=== PATIENT | male | born 1990 | race American Indian/Alaskan Native ===

== ENCOUNTER 2021-03-28 21:29 | Emergency (ER) | payer SELFPAY ==
[2021-03-28 22:06] VITALS: BP 126/54
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
[2021-03-29] MEDS ORDERED: ACETAMINOPHEN 500 MG TAB PO ONE (04:46)
--- NOTE | 2021-03-29 10:28 | Electrocardiograph Report ---
[facility] Test Date: 2021-03-28 Test Time: 22:13:38 Pat Name: DEANN PERDUE Department: Room: Gender: M Packager Machine: MIRELLA : 1990 Requested By: GAL MCGILL Order Number: [id number] Reading MD: Adriano Hughes Measurements Intervals [place] Rate: 52 P: 28 SD: 159 QRS: 62 QRSD: 92 T: 46 QT: 430 QTc: 401 Interpretive Statements Sinus bradycardia Anteroseptal infarct, age indeterminate No previous ECG available for comparison Electronically Signed On 03-29-2021 10:28:25 EDT by Adriano Hughes
== END 2021-03-29 04:55 | disposition home or self-care (01) ==
LOC: ED 21:29
DX: T75.4XXA Electrocution, initial encounter (principal); W86.8XXA Exposure to other electric current, initial encounter; Y93.89 Activity, other specified; Y92.89 Other specified places as the place of occurrence of the external cause; Y99.8 Other external cause status
CPT/HCPCS: 93005; 99282